=== PATIENT | male | born 1995 | race Caucasian/White ===

== ENCOUNTER 2021-02-17 15:30 | Emergency (ER) | payer MEDICAID ==
[2021-02-17 16:21] LABS: HEMOGLOBIN 14.7 gm/dl (14.0-17.5); RED BLOOD COUNT 4.86 M/UL (4.20-5.50); WHITE BLOOD COUNT 14.9 K/UL (4.5-11.0)
[2021-02-17 16:53] LABS: BUN/CREATININE RATIO 12 (0-10)
[2021-02-17] MEDS ORDERED: ONDANSETRON ODT4 MG SL (19:49)
[2021-02-17] MEDS ORDERED: NAPROSYN500 MG PO (19:49)
[2021-02-17] MEDS ORDERED: FLAGYL500 MG PO (19:49)
[2021-02-17] MEDS ORDERED: CIPRO500 MG PO (19:49)
== END 2021-02-17 20:09 | disposition home or self-care (01) ==
LOC: ER1 15:30
PROVIDERS: Physician Assistant
DX: K81.0 Acute cholecystitis (principal)
CPT/HCPCS: 80053; 81001; 83690; 85025; 99284; Q9967